=== PATIENT | male | born 1965 | race Caucasian/White ===

== ENCOUNTER 2020-07-13 11:00 | Outpatient (RCR) | payer BC | END 2020-08-17 | disposition home or self-care (01) | LOC: WSPT | DX: M75.42 Impingement syndrome of left shoulder (principal) ==

== ENCOUNTER → 2024-02-26 | Outpatient (CLI) | payer BC ==
[~2024-02-26] MED LIST: Iohexol 300 - 100 ML VIAL IV ONE; NORCO 325 MG-51 TAB PO; NS 100 ML IV SCH
== END ==
LOC: COL.RAD 13:58
DX: R22.0 Localized swelling, mass and lump, head (principal)
CPT/HCPCS: Q9967

== ENCOUNTER → 2024-03-14 | Outpatient (CLI) | payer BC ==
[~2024-03-14] VITALS: Ht 170.2 cm; Wt 59.1 kg
[~2024-03-14] MED LIST changes: -Iohexol 300 - 100 ML VIAL IV ONE; -NS 100 ML IV SCH; +ZYRTEC 10MG10 MG PO
[2024-03-14 13:11] VITALS: BP 128/72; PULSE 51; TEMP 97.8
[2024-03-14 15:15] VITALS: BP 130/73; PULSE 51
== END ==
LOC: COL.RAD 12:53
DX: R22.1 Localized swelling, mass and lump, neck (principal)